=== PATIENT | male | born 1985 | race African-American/Black ===

== ENCOUNTER 2021-03-08 09:07 | Emergency (ER) | payer MEDICARE ==
[~2021-03-08] VITALS: Ht 182.9 cm; Wt 80.0 kg
[2021-03-08] MEDS ORDERED: IBUPROFEN 600MG TABLET PO ONE (09:45)
[2021-03-08 09:48] VITALS: BP 124/82
== END 2021-03-08 10:50 | disposition home or self-care (01) ==
LOC: ER 09:07
DX: M79.661 Pain in right lower leg (principal); W01.0XXA Fall on same level from slipping, tripping and stumbling without subsequent striking against object, initial encounter; Y93.9 Activity, unspecified; Y92.9 Unspecified place or not applicable
CPT/HCPCS: 73590; 73600; 99283